=== PATIENT | female | born 1950 | race Caucasian/White ===

== ENCOUNTER 2024-06-15 08:51 | Day surgery (SDC) | payer OTHER, MEDICARE ==
[2024-06-15] VITALS (8 sets, daily range): BP systolic 110–153; BP diastolic 61–105; PULSE 49–72; RESP 8–16; TEMP 97.5; O2SAT 95–99
[~2024-06-15] VITALS: Ht 172.7 cm; Wt 85.5 kg
[2024-06-15] MEDS ORDERED: TRIA1TAB3 PO (09:47)
[2024-06-15] MEDS ORDERED: RIVA20TA (09:48)
[2024-06-15] MEDS ORDERED: LOSA100T58 (09:48)
[2024-06-15] MEDS ORDERED: SIMV5TAB58 PO (09:49)
[2024-06-15] MEDS ORDERED: vancomycin/NS 1 GM ADD-VANTAGE 250 ML IV ONE (09:50)
[2024-06-15] MEDS: normal saline 1000ml 1,000 ML IV PRN (10:02)
[2024-06-15] MEDS: VANCOMYCIN 1,500MG in NS 300 ML IVPB IV ONE (10:02)
[2024-06-15 10:06] LABS: BASOPHILS # (AUTO) 0.1 X10'3 (0-0.2); BASOPHILS % (AUTO) 0.7 % (0-1); EOSINOPHILS # (AUTO) 0.1 X10'3 (0-0.9); EOSINOPHILS % (AUTO) 1.5 % (0-6); HEMATOCRIT 43.3 % (35.0-45.0); HEMOGLOBIN 14.4 g/dl (12.0-16.0); LYMPHOCYTES # (AUTO) 1.9 X10'3 (1.1-4.8); LYMPHOCYTES % (AUTO) 25.7 % (21-51); MEAN CORPUSCULAR HEMOGLOBIN 29.7 PG (27.0-31.0); MEAN CORPUSCULAR HGB CONC 33.2 g/dL (33.0-36.5); MEAN CORPUSCULAR VOLUME 89.4 FL (78-98); MEAN PLATELET VOLUME 6.9 FL (7.4-10.4); MONOCYTES # (AUTO) 0.5 X10'3 (0-0.9); MONOCYTES % (AUTO) 7.1 % (2-12); NEUTROPHILS # (AUTO) 4.7 X10'3 (1.8-7.7); PLATELET COUNT 353 X10'3 (140-440); RED BLOOD COUNT 4.84 X10'6 (4.20-5.60); RED CELL DISTRIBUTION WIDTH 14.6 % (11.5-14.5); WHITE BLOOD COUNT 7.2 X10'3 (4.5-11.0)
[2024-06-15] MEDS ORDERED: midazolam 1 mg/ML 2ml injection ONE ×2 (10:41→11:32)
[2024-06-15] MEDS ORDERED: iohexol 350 MG/ML 50ML vial IV ONE (10:41)
[2024-06-15] MEDS ORDERED: fentaNYL/PF 50MCG/1 ML 2ML syringe ONE (10:41)
[2024-06-15] MEDS ORDERED: vancomycin 1,000mg inj ONE (10:42)
[2024-06-15] MEDS ORDERED: LIDOcaine 1% W/epiNEPHrine 1:100,000 20ml vial ONE (10:42)
[2024-06-15 10:44] LABS: INR 1.2 INR; PROTHROMBIN TIME 12.5 SECONDS (9.0-12.0)
[2024-06-15 10:49] LABS: ALBUMIN 3.9 G/DL (3.4-5.0); ANION GAP 8 (8-16); BLOOD UREA NITROGEN 11 MG/DL (7-18); CHLORIDE 105 MMOL/L (99-107); CREATININE 0.92 MG/DL (0.40-0.90); GLUCOSE 107 MG/DL (70-104); MAGNESIUM 2.3 MG/DL (1.5-2.4); POTASSIUM 3.7 MMOL/L (3.5-5.1); SODIUM 141 MMOL/L (135-145); eCRCL 55 ML/MIN; eGFR 60 ML/MIN
[2024-06-15] MEDS: ceFAZolin 2,000MG in D5W 100mL IV ONE (13:45)
== END 2024-06-15 14:45 | disposition home or self-care (01) ==
LOC: SSTAY O 08:51
PROVIDERS: ATTEND Internal Medicine Cardiovascular Disease
DX: I49.5 Sick sinus syndrome (principal); I48.20 Chronic atrial fibrillation, unspecified; I10 Essential (primary) hypertension; E78.5 Hyperlipidemia, unspecified; Z79.01 Long term (current) use of anticoagulants; Z79.899 Other long term (current) drug therapy
CPT/HCPCS: 33207; 36415; 71045; 80048; 83735; 85025; 85610; 93005; 99152; 99153; C1786; C1898; J0690; J2250; J3010; J3370; J3490; J7030; J7040; A4565; Q9967